=== PATIENT | female | born 1960 | race Caucasian/White ===

== ENCOUNTER → 2023-11-01 07:25 | Outpatient (REF) | payer MEDICARE, SELFPAY | LOC: HWRCS 07:25 | PROVIDERS: ATTENDING PHYSICIAN Internal Medicine | DX: I51.89 Other ill-defined heart diseases (principal); I10 Essential (primary) hypertension | CPT/HCPCS: 93306 ==

== ENCOUNTER → 2023-12-09 06:57 | Outpatient (REF) | payer MEDICARE, SELFPAY | LOC: RAD 06:57 | PROVIDERS: ATTENDING PHYSICIAN Internal Medicine | DX: I10 Essential (primary) hypertension (principal); Z82.49 Family history of ischemic heart disease and other diseases of the circulatory system | CPT/HCPCS: 76770 ==